=== PATIENT | male | born 1985 | race Caucasian/White ===

== ENCOUNTER 2024-03-07 19:34 | Emergency (ER) | payer OTHER, SELFPAY ==
[2024-03-07 20:23] VITALS: BP 140/86; PULSE 100; TEMP 36.9; O2SAT 98; BMI 26.3
--- NOTE | 2024-03-07 20:28 | XR_ITS ---
The [address] [address] Patient Name: ALESHIA SHANKAR MRN: [id number] date: 1985 Sex: M Assigned Patient Location: ER Current Patient Location: ER Accession/Order Number: [id number] Exam Date: 03/07/2024 21:05 Report Date: 03/07/2024 22:15 At the request of: TARA TIWARI Procedure: XR ankle RT min 3V EXAM: XR ankle RT min 3V HISTORY: twisted COMPARISON: None. TECHNIQUE: AP, oblique, lateral x-ray right ankle. FINDINGS: Prominent lateral soft tissue swelling without adjacent fracture of the fibula. Small joint effusion. Mild mortise asymmetry with slight lateral widening. No fracture elsewhere. Minor spurring. Mild calcaneal spur posteriorly. Visualized midfoot unremarkable. XR/XR ankle RT min 3V IMPRESSION: Marked lateral soft tissue swelling, small joint effusion. No definite fracture. Mild mortise asymmetry question ligamentous injury. Electronically authenticated by: MEGHANN BAUTISTA Date: 03/07/2024 22:15
--- NOTE | 2024-03-07 22:35 | ED_ITS ---
HPI HPI - Extremity Injury (Lower) General Chief Complaint: Extremity Injury, Lower Stated Complaint: LOWER EXTREMITY INJURY Time Seen by Provider: 03/07/24 22:31 Mode of arrival: walk-in Limitations: no limitations History of Present Illness HPI Narrative: 38-year-old male presents for right ankle pain. He rolled his ankle when he stepped in a hole in his yard while he was wearing sandals. This happened today and it has been swollen and painful and hurts more to walk on it. No other injury was sustained, no pain in the knee or foot. The pain is moderate. Related Data Home Medications ?Medication ?Instructions ?Recorded ?Confirmed No Known Home Medications 03/07/24 03/07/24 Allergies Allergy/AdvReac Type Severity Reaction Status Date / Time No Known Drug Allergies Allergy Verified 03/07/24 20:26 Opioid HPI Opioid Management Most Recent Pain and Opioid Data: Last Pain Scale 4 03/07/24 22:19 Review of Systems ROS Narrative A ten point review of systems is negative except as noted above. Exam Narrative Exam Narrative: Nurses note and vital signs reviewed and patient is not hypoxic. General: The patient appears well and in no apparent distress. Patient is resting comfortably on cart. Skin: Warm, dry, no pallor noted. There is no rash noted. Head: Normocephalic, atraumatic Eye: Normal conjunctiva, no drainage Ears, Nose, Mouth, and Throat: oral mucosa is moist. Nares patent. Cardiovascular: Regular Rate and Rhythm Respiratory: Patient is in no distress, no accessory muscle use Back: non-tender GI: Soft and nontender Musculoskeletal: The right ankle is quite swollen primarily over the lateral malleolus. Skin intact. The foot including the fifth metatarsal area is nontender and the knee is nontender. Neurological: A&O, normal speech Psychiatric: Cooperative Constitutional Vital Signs, click to edit/add: Last Vital Signs Temp 98.4 F 03/07/24 20:23 Pulse 100 H 03/07/24 20:23 Resp 16 03/07/24 20:23 BP 140/86 03/07/24 20:23 Pulse Ox 98 03/07/24 20:23 O2 Del Method Room Air 03/07/24 20:23 Course Vital Signs Vital signs: Vital Signs Temperature 98.4 F 03/07/24 20:23 Pulse Rate 100 H 03/07/24 20:23 Respiratory Rate 16 03/07/24 20:23 Blood Pressure 140/86 03/07/24 20:23 Pulse Oximetry 98 03/07/24 20:23 Oxygen Delivery Method Room Air 03/07/24 20:23 Temperature 98.4 F 03/07/24 20:23 Pulse Rate 100 H 03/07/24 20:23 Respiratory Rate 16 03/07/24 20:23 Blood Pressure 140/86 03/07/24 20:23 Pulse Oximetry 98 03/07/24 20:23 Oxygen Delivery Method Room Air 03/07/24 20:23 MDM - Extremity Injury (Lower) MDM Narrative Medical decision making narrative: No fracture is identified on x-ray. Will wrap and ankle splint were applied, application checked by me and found to be appropriate, he is neurovascular intact. He is also placed on crutches and referred to podiatry. Treatment diagnosis and follow-up were discussed with the patient. Differential Diagnosis Differential diagnosis: Likely ankle sprain and strain and ankle fracture Imaging Data Ankle x-ray: Radiologist's impression: ITS Impressions Ankle X-Ray 03/07/24 20:28 IMPRESSION: Marked lateral soft tissue swelling, small joint effusion. No definite fracture. Mild mortise asymmetry question ligamentous injury. Electronically authenticated by: MEGHANN BAUTISTA Date: 03/07/2024 22:15 Discharge Plan Discharge Stand Alone Forms: Portal Instructions Chief Complaint: Extremity Injury, Lower Clinical Impression: Ankle sprain Patient Disposition: Home, Self-Care Time of Disposition Decision: 22:35 Condition: Good Mode of Transportation: Private Vehicle Prescriptions / Home Meds: No Action No Known Home Medications Print Language: [place] Citizen Instructions: Ankle Sprain (ED), Ankle Stirrup Splint (ED) Referrals: Physician,Non-Staff, [Primary Care Provider] - 1 week Alex Templeton DPM [Physician] - 1 week
== END 2024-03-07 23:20 | disposition home or self-care (01) ==
PROVIDERS: Emergency Provider Emergency Medicine
DX: S93.401A Sprain of unspecified ligament of right ankle, initial encounter (principal); W18.42XA Slipping, tripping and stumbling without falling due to stepping into hole or opening, initial encounter
CPT/HCPCS: 73610; 99283

== ENCOUNTER 2024-03-10 09:23 | Outpatient (OUT) | payer OTHER, SELFPAY ==
--- NOTE | 2024-03-10 | XR_ITS ---
The [address] [address] Patient Name: ALESHIA SHANKAR MRN: [id number] date: 1985 Sex: M Assigned Patient Location: Current Patient Location: Accession/Order Number: [id number] Exam Date: 03/10/2024 09:33 Report Date: 03/11/2024 06:40 At the request of: RAMESH GLOVER Procedure: XR foot RT min 3V PROCEDURE: XR foot RT min 3V, XR ankle RT min 3V HISTORY: RIGHT FOOT PAIN COMPARISON: XR ankle right 03/07/2024 FINDINGS: BONES:No fracture, acute abnormality, or significant arthropathy. Degenerative enthesophyte at Achilles tendon insertion into the calcaneus with separate corticated ossifications; likely sequela of remote injury or a developmental cleft. SOFT TISSUES:Soft tissue swelling surrounding the ankle. Small joint effusion. EFFUSION:None visible. OTHER: Negative. XR/XR foot RT min 3V IMPRESSION: 1. No appreciable acute bone abnormality. 2. Soft tissue swelling and small joint effusion; improved. Electronically authenticated by: RENA HICKS Date: 03/11/2024 06:40
--- NOTE | 2024-03-10 | XR_ITS ---
The [address] [address] Patient Name: ALESHIA SHANKAR MRN: [id number] date: 1985 Sex: M Assigned Patient Location: Current Patient Location: Accession/Order Number: [id number] Exam Date: 03/10/2024 09:29 Report Date: 03/11/2024 06:40 At the request of: RAMESH GLOVER Procedure: XR ankle RT min 3V PROCEDURE: XR foot RT min 3V, XR ankle RT min 3V HISTORY: RIGHT FOOT PAIN COMPARISON: XR ankle right 03/07/2024 FINDINGS: BONES:No fracture, acute abnormality, or significant arthropathy. Degenerative enthesophyte at Achilles tendon insertion into the calcaneus with separate corticated ossifications; likely sequela of remote injury or a developmental cleft. SOFT TISSUES:Soft tissue swelling surrounding the ankle. Small joint effusion. EFFUSION:None visible. OTHER: Negative. XR/XR ankle RT min 3V IMPRESSION: 1. No appreciable acute bone abnormality. 2. Soft tissue swelling and small joint effusion; improved. Electronically authenticated by: RENA HICKS Date: 03/11/2024 06:40
== END 2024-03-10 09:24 | disposition home or self-care (01) ==
LOC: EC 09:23
PROVIDERS: Visit Provider Podiatrist Foot & Ankle Surgery
DX: M79.671 Pain in right foot (principal); M25.474 Effusion, right foot
CPT/HCPCS: 73610; 73630

== ENCOUNTER 2024-04-03 10:16 | Outpatient (RCR) | payer OTHER, SELFPAY | END 2024-05-16 15:47 | disposition home or self-care (01) | LOC: PT 10:16 | PROVIDERS: Visit Provider Podiatrist Foot & Ankle Surgery | DX: S93.491D Sprain of other ligament of right ankle, subsequent encounter (principal) | CPT/HCPCS: 97110; 97112; 97140; 97162 ==